=== PATIENT | female | born 1995 ===

== ENCOUNTER 2017-04-02 19:14 | Outpatient (CLI) | payer BC, MEDICAID ==
[~2017-04-02] VITALS: Ht 160 cm; Wt 129.7 kg
[2017-04-02 19:32] VITALS: BP 128/69; PULSE 80; TEMP 98.3
[2017-04-02] MEDS ORDERED: PRENATAL MVI (19:37)
[2017-04-02 20:16] VITALS: BP 123/68; PULSE 84
== END 2017-04-02 20:25 | disposition home or self-care (01) ==
LOC: LDRO 19:14
DX: O36.8130 Decreased fetal movements, third trimester, not applicable or unspecified (principal); Z3A.34 34 weeks gestation of pregnancy

== ENCOUNTER 2017-04-19 23:57 | Inpatient (IN) | payer BC, MEDICAID ==
[~2017-04-19] VITALS: Ht 152.4 cm; Wt 134.1 kg
[~2017-04-19 23:57] MED LIST: PRENATAL MVI
[2017-04-20] VITALS (21 sets, daily range): BP systolic 95–138; BP diastolic 38–76; PULSE 69–92; TEMP 97.5–98.4
[2017-04-20 00:54] LABS: BASO # 0.1 (0.0-0.2); BASO % 0.6 % (0.0-2.0); EOS # 0.1 (0.0-0.7); GRAN # 6.9 (1.4-6.5); GRAN % 69.7 % (42.2-75.2); LYMPH # 2.2 (1.2-3.4); LYMPH % 21.9 % (20.0-51.0); MEAN CELL VOLUME 91 fl (80.0-100.0); MEAN CORPUSCULAR HGB CONC 33 g/dl (33.0-37.0); MEAN PLATELET VOLUME 10.3 fl (7.4-10.4); MONO # 0.6 (0.1-0.6); MONO % 6.2 % (1.7-9.3); PLATELET COUNT 286 K/mm3 (130-400); RED BLOOD COUNT 3.76 M/mm3 (4.10-5.30); REDCELL DISTRIBUTION WIDTH-CV 13.7 % (11.5-14.5)
[2017-04-20 00:56] LABS: HEMATOCRIT 34.2 % (37.0-47.0); HEMOGLOBIN 11.3 g/dl (12.5-16.0); MEAN CORPUSCULAR HEMOGLOBIN 30 pg (27.0-31.0)
[2017-04-21 07:30] VITALS: BP 115/82; PULSE 89; TEMP 98.4
[2017-04-21 16:15] VITALS: BP 124/56; PULSE 94; TEMP 98.2
[2017-04-21 20:15] VITALS: BP 127/48; PULSE 72; TEMP 98.2
[2017-04-22 08:00] VITALS: BP 119/55; PULSE 79; TEMP 98.1
[2017-04-22] MEDS ORDERED: TYLENOL 325MG325 MG PO (12:18)
[2017-04-22] MEDS ORDERED: IBU800 M1 PO (12:18)
[2017-04-22 16:40] VITALS: BP 114/47; PULSE 79; TEMP 98.3
== END 2017-04-22 17:30 | disposition home or self-care (01) | DRG 765 ==
LOC: LDRO 23:57 → LDR 04-20 00:23 → OB 04-20 00:23
PROVIDERS: Obstetrics & Gynecology
PROC: 10D00Z1 Extraction of Products of Conception, Low, Open Approach (ICD-10-PCS; principal; 2017-04-20)
DX: O42.02 Full-term premature rupture of membranes, onset of labor within 24 hours of rupture (principal); O36.0130 Maternal care for anti-D [Rh] antibodies, third trimester, not applicable or unspecified; O32.1XX0 Maternal care for breech presentation, not applicable or unspecified; O43.193 Other malformation of placenta, third trimester; O43.123 Velamentous insertion of umbilical cord, third trimester; Z3A.37 37 weeks gestation of pregnancy; Z37.0 Single live birth
CPT/HCPCS: J0690; J1885; J2270; J2370; J2405; J2590; J7120